=== PATIENT | male | born 1995 | race Caucasian/White ===

== ENCOUNTER 2022-03-31 13:09 | Emergency (ER) | payer OTHER ==
[~2022-03-31] VITALS: Ht 175.3 cm; Wt 136.1 kg
[2022-03-31 13:10] VITALS: BP_SYST 140
== END 2022-03-31 14:15 ==
LOC: SED 13:09
DX: Z02.89 Encounter for other administrative examinations (principal); E11.9 Type 2 diabetes mellitus without complications; Z79.899 Other long term (current) drug therapy
CPT/HCPCS: 82962; 99283